=== PATIENT | female | born 1970 | race Caucasian/White ===

== ENCOUNTER 2017-04-25 13:47 | Emergency (ER) | payer SELFPAY ==
[2017-04-25] MEDS ORDERED: Acetaminophen/HYDROcodone 325-5 MG Tab PO ONE (16:35)
--- NOTE | 2017-04-28 11:39 | CR ---
INDICATION: Injury with pain. LEFT ANKLE: I do not see any fractures at the ankle. No soft tissue swelling. However, on the lateral projection, there is a suggestion of an avulsion fracture off the dorsal aspect of the distal talus. Close clinical correlation would be helpful as to the location of the patient's symptomatology. SHAYNA
--- NOTE | 2017-04-30 10:44 | ER ---
DATE SEEN: 04/25/2017 HISTORY OF PRESENT ILLNESS: The patient works with a road construction crew and 1 week ago slipped on the asphalt that was attached to her boot as she was exiting the stairs at [facility]. She fell down to the bottom. Her ankle slipped out in front of her and she had a hyperflexion injury with mild pain in her anterior talometatarsal bone, also medial and lateral malleolus, and the inframalleolar region. She has been walking throughout the week and working but she has increasing pain. 7, para 6. . Half a pack to a pack a day smoker. Alcohol negative, who was walking down the steps at the [facility]. The asphalt that was on her boot, slipped on the step surface, and she had traumatized her left ankle with a hyperflexion injury. No other serious illnesses. No previous surgeries. REVIEW OF SYSTEMS: Otherwise negative except as noted above. PHYSICAL EXAMINATION: VITAL SIGNS: Blood pressure 169/101, heart rate 99, respirations 18, oxygen saturation 99%, temperature 36.4 degrees. Weight is not recorded. GENERAL: Alert patient in moderate distress. She was well tanned. HEENT: Without abnormality. NECK: No thyromegaly or masses in the neck. No cervical adenopathy. LUNGS: Clear to auscultation without rales, rhonchi, or wheezes. HEART: S1 and S2. No murmur. No tachycardia. ABDOMEN: Soft, increased abdominal girth. No pelvic and AP pelvic discomfort with palpation. EXTREMITIES: Left lower extremity with marked tenderness at the dorsal aspect of the anterior talus, moderate at the talonavicular joint. Also, she has moderate tenderness medial and lateral malleolus and inframalleolar region, deltoid ligament on the medial side and the calcaneofibular ligaments on the lateral side. Ankle region is mildly tender. Santoyo sign is intact. Also, there is mild discomfort in the anterior calcaneus and the navicular bone. Dorsalis pedis intact. Posterior tibialis intact. Capillary refill is normal. Circulation normal. Sensation is normal. DIAGNOSTIC STUDIES: X-ray reveals suggestion of fracture, but it is very difficult to see. Consequently, a CAT scan was performed and she has a small acute avulsion fracture on the dorsal aspect of the talar neck, image #31, which is a capsular avulsion fracture of the talonavicular joint capsule. Also, there is a second fracture anterior process of the calcaneus, 1 mm displaced, on axial image #177. ASSESSMENT: Calcaneal fracture and talar fracture. PLAN: A short leg splint was placed. Patient to follow-up with telephone call to Orthopedics on 04/27/2017. Hydrocodone for pain. Elevate, ice. The only time she is to get up and walk on it is to go to the bathroom or to eat. Elevation will diminish the swelling in her ankle. /[id number] IGNACIO/TAL
== END 2017-04-25 16:45 | disposition home or self-care (01) ==
LOC: FB.ED 13:47
DX: S92.112A Displaced fracture of neck of left talus, initial encounter for closed fracture (principal); S92.022A Displaced fracture of anterior process of left calcaneus, initial encounter for closed fracture; F17.210 Nicotine dependence, cigarettes, uncomplicated; W10.8XXA Fall (on) (from) other stairs and steps, initial encounter; X50.9XXA Other and unspecified overexertion or strenuous movements or postures, initial encounter; Y93.89 Activity, other specified; Y92.69 Other specified industrial and construction area as the place of occurrence of the external cause; Y99.0 Civilian activity done for income or pay
CPT/HCPCS: 29515; 73610; 73700; 99284; A9270; 99282